=== PATIENT | male | born 1990 | race Caucasian/White ===

== ENCOUNTER 2023-04-11 19:44 | Emergency (ER) | payer OTHER, SELFPAY ==
--- NOTE | ~2023-04-11 | XR_ITS ---
EXAMINATION: XR FINGER, LEFT CLINICAL INFORMATION: Index finger laceration COMPARISON: None available. TECHNIQUE: Three views of the left hand second digit. FINDINGS: No fracture or dislocation. Alignment is anatomic. Joint spaces are maintained. No osseous erosions. Soft tissue swelling of the second digit. No radiopaque foreign body. XR/XR finger LT min 2V IMPRESSION: Soft tissue swelling of the second digit. No fracture or malalignment.
[2023-04-11 20:04] VITALS: BP 166/10; PULSE 111; RESP 20; TEMP 36.7; O2SAT 96; BMI 32.6
--- NOTE | 2023-04-11 20:05 | ED.WOUNDLAC ---
HPI - Wound/Laceration General Chief Complaint: Wound/Laceration Stated Complaint: Left index finger laceration Time Seen by Provider: 04/11/23 21:15 Source: patient, RN notes reviewed and old records reviewed Mode of arrival: ambulatory History of Present Illness HPI narrative: 33-year-old female presents for evaluation of a laceration to the left 2nd finger. Patient reports that he was working on his car using a utility knife He accidentally cut his left 2nd finger Bleeding controlled Reports that he needs a tetanus booster Related Data Allergies Allergy/AdvReac Type Severity Reaction Status Date / Time No Known Allergies Allergy Verified 04/11/23 20:03 Review of Systems Musculoskeletal: Comments: Left 2nd finger pain Integumentary/Breasts: Skin/Breast: Reports wounds (Laceration to left 2nd finger) PMFSH Social History Social History Advance Directives: No Advance Directives Information Provided: No Physical Exam Vital Signs: Vital Signs: Last Vital Signs Temp 98.1 F 04/11/23 20:04 Pulse 111 H 04/11/23 20:04 Resp 20 04/11/23 20:04 BP 166/10 H 04/11/23 20:04 Pulse Ox 96 04/11/23 20:04 O2 Del Method Room Air 04/11/23 20:04 BMI result Body Mass Index 32.6 Skin: Other: Four cm linear, full-thickness laceration to the left 2nd finger just to the PIP joint. Deep expiration does not show any evidence of tendon injury. There is some subcutaneous fat visible Course Course Course Narrative: RME - 33 yo right hand dominant male presents to the ER for evaluation of a laceration to his left index finger sustained with a utility knife just [employer]. anxious and feels lightheaded on arrival. Plan: XR finger, lac repair, tdap Medications Administered Discontinued Medications Generic Name Dose Route Start Last Admin Trade Name Freq PRN Reason Stop Dose Admin Diphtheria/Tetanus/Acell Pertussis 0.5 ml 04/11/23 20:08 04/11/23 21:20 Diphth,Pertus(Acell),Tet Adult 0.5 Ml Syringe IM 04/11/23 20:09 0.5 ml .ONCE ONE Administration Lidocaine HCl 5 ml 04/11/23 21:29 04/11/23 21:48 Lidocaine Hcl 1 % Mpf 5 Ml Vial EPIDURAL 04/11/23 21:30 5 ml ONCE ONE Administration Lidocaine HCl 5 ml 04/11/23 22:23 04/11/23 22:31 Lidocaine Hcl 1 % Mpf 5 Ml Vial INFILTRATI 04/11/23 22:24 5 ml ONCE ONE Administration Oxycodone HCl 5 mg 04/11/23 21:29 04/11/23 21:48 Oxycodone Hcl Immed Release 5 Mg Tablet PO 04/11/23 21:30 5 mg ONCE ONE Administration Medical Decision Making Medical Decision Making MDM Narrative: 33-year-old male presents for evaluation a laceration to his left 2nd finger. X-ray does not show any acute osseous injury or retained foreign body. Wound will require sutures. The patient has good flexion extension of the digit, no evidence of tendon injury. Differential Diagnosis Differential Diagnoses: The differential diagnosis associated with the presentation includes Laceration Puncture wound Tendon rupture Abrasion Independent Interpretation I performed an independent interpretation of an: Plain X-Ray (No obvious fracture) Radiology Impression Discussion of test interpretation with radiology: I have reviewed the radiologist's reading. Radiologist Impression: No osseous abnormality to the left 2nd finger. Noted soft tissue swelling Procedures Laceration Laceration 1: Site: hand Side (If applicable): left (2nd finger) Size (cm): 4 Description: linear Depth: simple, single layer Local Anesthetic: lidocaine 1% Amount of anesthesia used (mL): 7 Pre-repair: wound explored and irrigated extensively Skin layer closed with: nylon Size (cm): 5-0 Number of sutures: 5 Technique: simple, interrupted Discharge Plan Discharge Clinical Impression: Finger laceration Patient Disposition: Home, Self-Care Instructions: Finger Laceration (ED) Additional Instructions: You had 5 sutures placed today. These can be removed in 7-10 days Keep the area clean and dry You may apply topical antibiotic every other day if you wish
[2023-04-11] MEDS: Diphth,Pertus(ACell),Tet Adult 0.5 ML SYRINGE IM (21:20)
[2023-04-11] MEDS: Lidocaine HCl 1 % MPF 5 ML VIAL EPIDURAL (21:48)
[2023-04-11] MEDS: oxyCODONE HCl Immed Release 5 MG TABLET PO (21:48)
[2023-04-11] MEDS: Lidocaine HCl 1 % MPF 5 ML VIAL INFILTRATI (22:31)
--- NOTE | 2023-04-11 23:11 | PC.NURSE ---
pt reported a laceration to his left hand after a injury, area sutured, medicated with 5mg of oxycodone po
== END 2023-04-11 23:19 | disposition home or self-care (01) ==
PROVIDERS: Emergency Provider Internal Medicine
DX: S61.211A Laceration without foreign body of left index finger without damage to nail, initial encounter (principal); S60.512A Abrasion of left hand, initial encounter; F41.1 Generalized anxiety disorder; F43.0 Acute stress reaction; W26.9XXA Contact with unspecified sharp object(s), initial encounter; Y93.9 Activity, unspecified; Y92.9 Unspecified place or not applicable; Y99.9 Unspecified external cause status; Z79.899 Other long term (current) drug therapy; Z23 Encounter for immunization
CPT/HCPCS: 12002; 73140; 90471; 90715; 99284